=== PATIENT | male | born 1960 | race Caucasian/White ===

== ENCOUNTER → 2017-10-08 | Outpatient (CLI) | payer MEDICARE, OTHER | END | disposition home or self-care (01) | LOC: GMAL 11:36 | PROVIDERS: ATTEND Family Medicine | DX: D51.3 Other dietary vitamin B12 deficiency anemia (principal); Z12.5 Encounter for screening for malignant neoplasm of prostate; R53.83 Other fatigue; E55.9 Vitamin D deficiency, unspecified | CPT/HCPCS: 82306; 82607; 84443; G0103 ==

== ENCOUNTER → 2018-04-08 | Outpatient (CLI) | payer MEDICARE, OTHER | LOC: GMAL 10:24 | PROVIDERS: ATTEND Family Medicine | DX: D51.3 Other dietary vitamin B12 deficiency anemia (principal); R53.83 Other fatigue; E55.9 Vitamin D deficiency, unspecified ==

== ENCOUNTER → 2018-04-17 | Outpatient (CLI) | payer MEDICARE, OTHER | LOC: GMAL 17:18 | PROVIDERS: ATTEND Family Medicine | DX: S91.112A Laceration without foreign body of left great toe without damage to nail, initial encounter (principal) ==

== ENCOUNTER → 2019-02-10 | Outpatient (CLI) | payer MEDICARE, OTHER | LOC: YCHH 11:33 | PROVIDERS: ATTEND Family Medicine | DX: E11.9 Type 2 diabetes mellitus without complications (principal); D64.9 Anemia, unspecified; E78.5 Hyperlipidemia, unspecified; N18.9 Chronic kidney disease, unspecified; N19 Unspecified kidney failure; E55.9 Vitamin D deficiency, unspecified; N40.0 Benign prostatic hyperplasia without lower urinary tract symptoms ==

== ENCOUNTER → 2019-07-28 | Outpatient (CLI) | payer MEDICARE, OTHER | LOC: GMAJ 11:09 | PROVIDERS: ATTEND Family Medicine | DX: D64.9 Anemia, unspecified (principal); I10 Essential (primary) hypertension; E78.5 Hyperlipidemia, unspecified; E11.21 Type 2 diabetes mellitus with diabetic nephropathy ==

== ENCOUNTER → 2020-01-26 | Outpatient (CLI) | payer MEDICARE, OTHER | LOC: YCHH 10:21 | PROVIDERS: ATTEND Family Medicine | DX: E11.22 Type 2 diabetes mellitus with diabetic chronic kidney disease (principal); D63.1 Anemia in chronic kidney disease; E78.5 Hyperlipidemia, unspecified; R79.89 Other specified abnormal findings of blood chemistry ==

== ENCOUNTER → 2020-05-30 | Outpatient (CLI) | payer MEDICARE, OTHER | LOC: YCHH 09:22 | PROVIDERS: ATTEND Family Medicine | DX: E11.22 Type 2 diabetes mellitus with diabetic chronic kidney disease (principal); I12.0 Hypertensive chronic kidney disease with stage 5 chronic kidney disease or end stage renal disease; N18.6 End stage renal disease; Z12.5 Encounter for screening for malignant neoplasm of prostate; E78.5 Hyperlipidemia, unspecified; E03.9 Hypothyroidism, unspecified | CPT/HCPCS: 80053; 80061; 83036; 84443; G0103 ==

== ENCOUNTER → 2020-11-25 | Outpatient (CLI) | payer MEDICARE, OTHER | LOC: YCHH 11:10 | PROVIDERS: ATTEND Family Medicine | DX: E11.22 Type 2 diabetes mellitus with diabetic chronic kidney disease (principal); D63.1 Anemia in chronic kidney disease; E78.5 Hyperlipidemia, unspecified; I12.0 Hypertensive chronic kidney disease with stage 5 chronic kidney disease or end stage renal disease; N18.9 Chronic kidney disease, unspecified ==

== ENCOUNTER 2020-12-11 14:45 | Emergency (ER) | payer MEDICARE, OTHER ==
--- NOTE | 2020-12-11 14:47 | ED.PDOC ---
History of Present Illness - General Stated Complaint: Chest pain Time Seen by Provider: 12/11/20 14:46 - History of Present Illness Initial Comments: Patient states he missed his dialysis scheduled for yesterday. He now complains of chest pain onset 1230 today. The pain is pressure-like in the substernal area and does not radiate. Current pain level 4/10 maximum pain level 7/10. Patient complains of mild dyspnea. He denies diaphoresis. Patient missed his dialysis because he had diarrhea. This is a common and recurrent symptom for him. He says he has had recurrent episodes of diarrhea for about 1 week. He had 3 episodes of watery stool in the last 24 hours. Stool is nonbloody. Patient denies fever or chills he has had no cough patient does complain of a runny nose. Patient denies any prior history of coronary artery disease. Timing/Duration: 1-3 hours Severity: moderate Improving Factors: nothing Worsening Factors: nothing Associated Symptoms: other - Diarrhea Allergies/Adverse Reactions: Allergies Niacin Allergy (Unknown, Verified 02/28/16 19:37) Exenatide [From Byetta] Allergy (Verified 02/28/16 19:37) PATIENT IS ALLERGIC TO BYETTA, BUT NOT ALLERGIC TO BYDUREON PER PATIENTS CHART/DR RAHMAN Phenol [From Byetta] Allergy (Verified 02/28/16 19:37) Pioglitazone [From Actos] Allergy (Verified 02/28/16 19:37) Simvastatin Allergy (Verified 02/28/16 19:37) PATIENT IS NOT ALLERGIC TO ATORVASTATIN PER CHART Home Medications: Ambulatory Orders Atorvastatin Calcium 40 mg PO HS 11/02/13 Furosemide [Lasix] 80 mg PO BIDFD 10/04/14 Insulin Regular (Human) [Humulin R U-500 (Concentr] 0.35 ml SC 21 01/25/15 Insulin Regular (Human) [Humulin R U-500 (Concentr] 0.4 ml SC 0700,1130 01/25/15 Metolazone 5 mg PO COLE-OTH-DAY 01/25/15 Aspirin [Baby Aspirin] 81 mg PO QD 02/28/16 Cadexomer Iodine [Iodosorb] 0.9 % EX DAILY 02/28/16 Cefepime HCl-Dextrose [Cefepime] 1 inj IV DAILY 02/28/16 Fe Fum-Iron Polysacch Complex- [Integra Plus] 1 cap PO DAILY 02/28/16 Metronidazole 500 mg PO DAILY 02/28/16 Nebivolol HCl [Bystolic] 5 mg PO DAILY 02/28/16 amLODIPine BESYLATE [Norvasc] 5 mg PO DAILY 02/28/16 hydrALAZINE HCl [(None)] 25 mg PO DAILY 02/28/16 Review of Systems - Review of Systems Constitutional: States: no symptoms reported EENTM: States: nose congestion Respiratory: States: see HPI, short of breath Cardiology: States: see HPI, chest pain Gastrointestinal/Abdominal: States: see HPI, diarrhea Genitourinary: States: no symptoms reported Musculoskeletal: States: other - Chronic back pain, no leg pain or new swelling. Skin: States: no symptoms reported Neurological: States: no symptoms reported Endocrine: States: no symptoms reported Hematologic/Lymphatic: States: no symptoms reported Past Medical History (General) - Patient Medical History Hx Seizures: No Hx Stroke: No Hx Asthma: No Hx of COPD: Yes - sleep apnea, uses CPAP Hx Cardiac Disorders: Yes - high cholesterol Hx Congestive Heart Failure: Yes Hx Pacemaker: No Hx Hypertension: Yes Hx Diabetes: Yes Hx Cancer: No Hx Hepatitis C: No Hx MRSA: No - Vaccination History Hx Tetanus, Diphtheria Vaccination: No Hx Influenza Vaccination: No Hx Pneumococcal Vaccination: No - Social History Hx Tobacco Use: No Hx Chewing Tobacco Use: No Hx Alcohol Use: Yes - former Hx Substance Use: No Hx Depression: No Hx Physical Abuse: No Hx Emotional Abuse: No Hx Suspected Abuse: No - Female History Patient : No Family Medical History - Family History Father Family History: Unknown Living Status: Unknown Physical Exam - Physical Exam General Appearance: Alert, Comfortable, Other - Obese body habitus Eye Exam: bilateral normal Ears, Nose, Throat: normal ENT inspection, normal pharynx Neck: non-tender, full range of motion Respiratory: rales - Mild, bibasilar Cardiovascular/Chest: regular rate, rhythm Gastrointestinal/Abdominal: normal bowel sounds, non tender, soft Back Exam: normal inspection, no vertebral tenderness Extremity: no calf tenderness, pedal edema - 3+ bilaterally Neurologic: it application architect II-XII nml as tested, no motor/sensory deficits, normal mood/affect, oriented x 3 Skin Exam: normal color Lymphatic: no adenopathy Progress - Progress Progress: 12/11/20 16:46 [employer] Frier, Dr. Mari in [place] called at 3:38 PM and responded at 4:46 PM: Patient should call the dialysis center in [place] tomorrow morning to arrange for an appointment for dialysis tomorrow. Medical decision making 60-year-old male with end-stage renal disease and hypertension who presents to the emergency room 1 day after missing his dialysis due to diarrhea now complaining of some mild chest discomfort and dyspnea. Patient does not have any acute changes on his EKG or elevation of cardiac enzymes. The chest x-ray does not show acute pulmonary edema and is not hypoxemic. Patient is stable for make-up dialysis tomorrow morning. - Results/Orders Results/Orders: Electrocardiogram: Sinus rhythm with first-degree AV block, 93/min. CA interval 264. QRS 146. Right bundle branch block and left anterior fascicular block. ST segment depression or elevation. EXAM: Single view chest. INDICATION: Dyspnea, missed dialysis. COMPARISON: Chest x-ray: 10/30/2015. FINDINGS: Cardiac silhouette: Enlarged Sharon: Mild pulmonary vascular congestion Lobar consolidation: None. Pleural effusion: None. Pneumothorax: None. Other: None. Bones: Unremarkable. Other: None. IMPRESSION: Mild pulmonary vascular congestion Electronically signed by: Lawson Bryant MD 12/11/2020 3:45 PM ANIMAL KILLER 12/11/20 14:56 EKG Assessment ONCE 12/11/20 15:00 EKG STAT Laboratory Results - last 24 hr 12/11/20 12/11/20 12/11/20 15:06 15:06 15:06 WBC 7.1 RBC 3.42 L Hgb 9.9 L Hct 29.8 L MCV 87.1 MCH 29.0 MCHC 33.3 RDW 16.3 H Plt Count 265 MPV 7.0 L Absolute Neuts (auto) 5.20 Absolute Lymphs (auto) 1.20 Absolute Monos (auto) 0.50 Absolute Eos (auto) 0.20 Absolute Basos (auto) 0.10 Neutrophils % 72.4 Lymphocytes % 16.4 L Monocytes % 7.5 Eosinophils % 2.7 Basophils % 1.0 PT 10.7 INR 1.08 PTT (SP) 28.3 Sodium 136 Potassium 5.5 H Chloride 96 L Carbon Dioxide 22 Anion Gap 23.5 H BUN 85 H Creatinine 9.24 H* BUN/Creatinine Ratio 9.2 L Random Glucose 241 H Serum Osmolality 305.7 H Calcium 7.8 L Total Bilirubin 0.5 AST 12 ALT 10 Alkaline Phosphatase 62 Creatine Kinase 180 H CK-MB (CK-2) 6.1 H* CK-MB (CK-2) % 3.39 Troponin I 0.02 B-Natriuretic Peptide Serum Total Protein 8.3 H Albumin 3.5 Globulin 4.8 H Albumin/Globulin Ratio 0.7 L 12/11/20 15:46 WBC RBC Hgb Hct MCV MCH MCHC RDW Plt Count MPV Absolute Neuts (auto) Absolute Lymphs (auto) Absolute Monos (auto) Absolute Eos (auto) Absolute Basos (auto) Neutrophils % Lymphocytes % Monocytes % Eosinophils % Basophils % PT INR PTT (SP) Sodium Potassium Chloride Carbon Dioxide Anion Gap BUN Creatinine BUN/Creatinine Ratio Random Glucose Serum Osmolality Calcium Total Bilirubin AST ALT Alkaline Phosphatase Creatine Kinase CK-MB (CK-2) CK-MB (CK-2) % Troponin I B-Natriuretic Peptide 1010.0 H* Serum Total Protein Albumin Globulin Albumin/Globulin Ratio Vital Signs - 24 hr 12/11/20 12/11/20 12/11/20 14:56 15:02 15:03 Temperature 97.8 F Pulse Rate 78 Pulse Rate [ 86 78 Right Brachial] Respiratory 20 Rate Blood Pressure 194/75 [Right Arm] O2 Sat by Pulse 98 Oximetry 12/11/20 15:46 Temperature Pulse Rate Pulse Rate [ 82 Right Brachial] Respiratory 20 Rate Blood Pressure 185/80 [Right Arm] O2 Sat by Pulse 98 Oximetry Departure - Departure Clinical Impression: Dyspnea without hypoxemia, End stage renal disease on dialysis, Hyperkalemia, Diarrhea, Hypertension Time of Disposition: 16:50 Disposition: Discharge to Home or Self Care Condition: Good Instructions: Hemodialysis (DC) Diet: resume usual diet Activity: other - Avoid any unnecessary exertion which may increase your shortness of breath. Referrals: Benjie Mcdonald III, MD [Primary Care Provider] - 1-2 Weeks Home Medications: Ambulatory Orders Atorvastatin Calcium 40 mg PO HS 11/02/13 Furosemide [Lasix] 80 mg PO BIDFD 10/04/14 Insulin Regular (Human) [Humulin R U-500 (Concentr] 0.35 ml SC 21 01/25/15 Insulin Regular (Human) [Humulin R U-500 (Concentr] 0.4 ml SC 0700,1130 01/25/15 Metolazone 5 mg PO COLE-OTH-DAY 01/25/15 Aspirin [Baby Aspirin] 81 mg PO QD 02/28/16 Cadexomer Iodine [Iodosorb] 0.9 % EX DAILY 02/28/16 Cefepime HCl-Dextrose [Cefepime] 1 inj IV DAILY 02/28/16 Fe Fum-Iron Polysacch Complex- [Integra Plus] 1 cap PO DAILY 02/28/16 Metronidazole 500 mg PO DAILY 02/28/16 Nebivolol HCl [Bystolic] 5 mg PO DAILY 02/28/16 amLODIPine BESYLATE [Norvasc] 5 mg PO DAILY 02/28/16 hydrALAZINE HCl [(None)] 25 mg PO DAILY 02/28/16 Comments: Limit your fluid intake as much as you can. If you develop significant worse bishnu of your difficulty breathing then return to the emergency department. Call the dialysis center in [place] in the morning as soon as they open to arrange for a dialysis appointment tomorrow to make up for the one you missed on Saturday.
--- NOTE | 2020-12-11 15:46 | RAD ---
EXAM: Single view chest. INDICATION: Dyspnea, missed dialysis. COMPARISON: Chest x-ray: 10/30/2015. FINDINGS: Cardiac silhouette: Enlarged Sharon: Mild pulmonary vascular congestion Lobar consolidation: None. Pleural effusion: None. Pneumothorax: None. Other: None. Bones: Unremarkable. Other: None. IMPRESSION: Mild pulmonary vascular congestion Electronically signed by: Lawson Bryant MD 12/11/2020 3:45 PM STUDIO COORDINATOR
[2020-12-11 17:15] VITALS: BP 187/88; TEMP 97.9; O2SAT 100
== END 2020-12-11 17:10 | disposition home or self-care (01) ==
LOC: ER 14:45
DX: R06.00 Dyspnea, unspecified (principal); N18.6 End stage renal disease; R19.7 Diarrhea, unspecified; R07.2 Precordial pain; E87.5 Hyperkalemia; I44.0 Atrioventricular block, first degree; I45.2 Bifascicular block; E66.9 Obesity, unspecified; E11.22 Type 2 diabetes mellitus with diabetic chronic kidney disease; I13.2 Hypertensive heart and chronic kidney disease with heart failure and with stage 5 chronic kidney disease, or end stage renal disease; I50.9 Heart failure, unspecified; J44.9 Chronic obstructive pulmonary disease, unspecified; E78.00 Pure hypercholesterolemia, unspecified; Z20.822 Contact with and (suspected) exposure to COVID-19; Z99.2 Dependence on renal dialysis; Z79.899 Other long term (current) drug therapy; Z79.4 Long term (current) use of insulin; Z79.82 Long term (current) use of aspirin; Z88.8 Allergy status to other drugs, medicaments and biological substances; Z68.35 Body mass index [BMI] 35.0-35.9, adult